=== PATIENT | male | born 1995 | race Caucasian/White ===

== ENCOUNTER 2016-11-22 04:20 | Inpatient (IN) | payer OTHER ==
[2016-11-22] VITALS (10 sets, daily range): BP systolic 103–143; BP diastolic 51–86
[~2016-11-22] VITALS: Ht 180.3 cm; Wt 80.3 kg
--- NOTE | ~2016-11-22 | CON ---
[place], [place] REPORT OF CONSULTATION NAME: FILI DEJESUS UNIT #: [id number] ROOM: [facility] DOCTOR: JUAN DIEGO OSORIO ED.DLAURITA) BIRTHDATE: [birth year] DOS: 11/22/2016 HISTORY OF PRESENT ILLNESS: The patient is a 21-year-old male referred by the hospitalist for possible suicidal threats. The patient is in the intensive care unit in the [facility]. He states he is single and has no children. His mother and father are still living. He is employed at a [employer] and also works for a security company. His physician is Dr. Romano and his medical history is pertinent for alcohol abuse, bipolar disorder. He admits to drinking several fifths of alcohol each week and often drinks more than that. He also smokes 1 pack of cigarettes per day. This patient is awake, alert and oriented in all three spheres. He does not appear to be having any active hallucinations or delusional thoughts. He adamantly denies any suicidal ideation or plan. He states he has attempted suicide 1-2 times in the past and has been hospitalized 6-8 times. He also has been to rehabilitation for alcoholism on 9 different occasions. At the present time, he states he does not want to go to rehab again. He does follow with Maryam Reardon, nurse practitioner with [facility] here in [place]. He is presently taking Fiorinal, BuSpar, Prozac, lithium and Ambien. The patient states that he does want to follow up with outpatient counseling for substance abuse and I did refer him to our case management services to arrange for him to followup with outpatient substance abuse counseling. He does reside in [place], which may be a problem for determining services; however, he states he would like to get to [facility] here in [place]. At this time, he is under a pink slip and I believe that should remain until he is ready to be discharged. He did, however, deny suicidal ideation and/or plan and states he is not planning on leaving the hospital. DIAGNOSES: 1. Bipolar 1 - mixed. 2. Alcohol abuse. RECOMMENDATIONS: 1. The patient should follow at [facility]. 2. The patient should follow at [facility] for substance abuse issues. Thank you very much for this consult. JUAN DIEGO OSORIO ED.D CM:CONSTR:REPORT OF CONSULTATION [id number] 11/23/16 0001 interface
[2016-11-22] MEDS ORDERED: LITHIUM CARBON300 MG PO ×2 (04:47→04:48)
[2016-11-22] MEDS ORDERED: BUSPAR15 MG PO (04:48)
[2016-11-22] MEDS ORDERED: AMBIEN10 M1 PO (04:49)
[2016-11-22 04:58] LABS: BILIRUBIN NEGATIVE (NEGATIVE); BLOOD NEGATIVE (NEGATIVE); CLARITY CLEAR (CLEAR); COLOR YELLOW (YELLOW); GLUCOSE NEGATIVE (NEGATIVE); KETONE NEGATIVE (NEGATIVE); LEUKO ESTERASE NEGATIVE (NEGATIVE); NITRITE NEGATIVE (NEGATIVE); PROTEIN NEGATIVE (NEGATIVE); SPECIFIC GRAVITY <= 1.005 (1.005-1.030); UROBILINOGEN 0.2 E.U./dl (0.2-1.0)
[2016-11-22 05:05] LABS: BASO # 0.1 10*3/uL (0.0-0.1); BASO % 1.1 % (0.0-1.0); EOS # 0.1 10*3/uL (0.0-0.4); EOS % 0.9 % (1.0-4.0); HEMOGLOBIN 16.9 g/dl (14.0-18.0); LYMPH # 1.8 10*3/uL (1.3-4.4); LYMPH % 23.5 % (27.0-41.0); MEAN CELL VOLUME 93.5 fl (80.0-94.0); MEAN CORPUSCULAR HGB 32.3 pg (27.0-31.0); MEAN CORPUSCULAR HGB CONC 34.5 g/dl (33.0-37.0); MEAN PLATELET VOLUME 9.5 fl (9.6-12.3); MONO # 0.8 10*3/uL (0.1-1.0); NEUT # 4.9 10*3/uL (2.3-7.9); NEUT % 64.1 % (47.0-73.0); PLATELET COUNT AUTOMATED 296 10*3/uL (130-400); RED BLOOD COUNT 5.24 10*6/uL (4.50-5.90); WHITE BLOOD COUNT 7.6 10*3/uL (4.8-10.8)
[2016-11-22 05:08] LABS: URINE REFLEX COMMENT NO (NO); WBC 0-2 wbc/hpf (0-5)
[2016-11-22 05:09] LABS: URINE AMPHETAMINES < 1000 (1000ng/ml); URINE BARBITURATES > 200 (200ng/ml); URINE COCAINE < 300 (300ng/ml)
[2016-11-22 05:19] LABS: ALBUMIN 4.4 gm/dl (3.1-4.5); ALKALINE PHOSPHATASE 99 U/L (45-117); BILIRUBIN, TOTAL 0.4 mg/dl (0.2-1.0); BUN 5 mg/dl (7-24); CARBON DIOXIDE 25 mmol/L (21-32); CHLORIDE 108 mmol/L (98-107); EST GLOM FILT AFRICAN AMERICAN > 60 ml/min; GLUCOSE 109 mg/dL (65-99); POTASSIUM 3.6 mmol/L (3.5-5.1); SGOT/AST 28 IU/L (3-35); SGPT/ALT 34 U/L (12-78); SODIUM 143 mmol/L (136-145); TOTAL PROTEIN 7.6 gm/dL (6.4-8.2)
[2016-11-22] MEDS ORDERED: PROZAC40 M1 PO (09:33)
[2016-11-22] MEDS ORDERED: FIORINAL W/CODE1 TAB PO (09:34)
[2016-11-23] VITALS: BP 120/60
[2016-11-23 04:00] VITALS: BP 116/76
[2016-11-23 06:08] LABS: ALBUMIN 3.4 gm/dl (3.1-4.5); ALKALINE PHOSPHATASE 83 U/L (45-117); BILIRUBIN, TOTAL 0.7 mg/dl (0.2-1.0); BUN 9 mg/dl (7-24); CARBON DIOXIDE 25 mmol/L (21-32); CHLORIDE 106 mmol/L (98-107); CHOLESTEROL 111 mg/dL (<200); EST GLOM FILT AFRICAN AMERICAN > 60 ml/min; GLUCOSE 88 mg/dL (65-99); HDL CHOLESTEROL 39 mg/dl (40-60); LDL CHOLESTEROL 44 mg/dL (9-159); PHOSPHOROUS 3.5 mg/dL (2.5-4.9); POTASSIUM 3.1 mmol/L (3.5-5.1); SGOT/AST 17 IU/L (3-35); SGPT/ALT 27 U/L (12-78); SODIUM 139 mmol/L (136-145); TOTAL PROTEIN 6.3 gm/dL (6.4-8.2); TRIGLYCERIDES 140 mg/dl (<150); VLDL CHOLESTEROL 28 mg/dL (6-40)
[2016-11-23 06:13] LABS: THYROID STIM HORMONE (HS) 0.395 uIU/ml (0.358-4.75)
[2016-11-23 06:15] LABS: PROTHROMBIN TIME 10.7 SECONDS (9.0-12.4)
[2016-11-23 06:22] LABS: BASO # 0.1 10*3/uL (0.0-0.1); BASO % 1.1 % (0.0-1.0); EOS # 0.2 10*3/uL (0.0-0.4); EOS % 2.8 % (1.0-4.0); LYMPH # 2.5 10*3/uL (1.3-4.4); LYMPH % 33.7 % (27.0-41.0); MEAN CELL VOLUME 96.2 fl (80.0-94.0); MEAN CORPUSCULAR HGB 32.1 pg (27.0-31.0); MEAN CORPUSCULAR HGB CONC 33.3 g/dl (33.0-37.0); MEAN PLATELET VOLUME 9.9 fl (9.6-12.3); MONO # 0.9 10*3/uL (0.1-1.0); MONO % 12.2 % (3.0-9.0); NEUT # 3.7 10*3/uL (2.3-7.9); NEUT % 49.7 % (47.0-73.0); PLATELET COUNT AUTOMATED 241 10*3/uL (130-400); RED BLOOD COUNT 4.99 10*6/uL (4.50-5.90); WHITE BLOOD COUNT 7.4 10*3/uL (4.8-10.8)
[2016-11-23 07:58] LABS: FOLIC ACID 6.66 ng/mL (>5.38); VITAMIN D, 25-HYDROXY 15.6 ng/mL (30-100)
[2016-11-23 08:00] VITALS: BP 113/80
[2016-11-23 12:00] VITALS: BP 131/88
== END 2016-11-23 13:11 | disposition home or self-care (01) | DRG 897 ==
LOC: ED 04:20 → EDHOLD 08:43 → ICCU 08:43
PROVIDERS: Emergency Medicine Emergency Medical Services; Family Medicine
DX: F10.220 Alcohol dependence with intoxication, uncomplicated (principal); R45.851 Suicidal ideations; E87.8 Other disorders of electrolyte and fluid balance, not elsewhere classified; G47.00 Insomnia, unspecified; F31.9 Bipolar disorder, unspecified; E87.6 Hypokalemia; E55.9 Vitamin D deficiency, unspecified; F17.210 Nicotine dependence, cigarettes, uncomplicated; S91.312A Laceration without foreign body, left foot, initial encounter; Z71.6 Tobacco abuse counseling; Z79.899 Other long term (current) drug therapy; W22.8XXA Striking against or struck by other objects, initial encounter; Y93.89 Activity, other specified; Y92.89 Other specified places as the place of occurrence of the external cause; Y99.8 Other external cause status; Z82.49 Family history of ischemic heart disease and other diseases of the circulatory system; Z90.49 Acquired absence of other specified parts of digestive tract